=== PATIENT | female | born 1960 ===

== ENCOUNTER 2020-11-17 08:42 | Outpatient (CLI) | payer OTHER | END 2020-11-17 22:06 | disposition home or self-care (01) | LOC: INF 08:42 | PROVIDERS: ATTEND Internal Medicine | DX: Z23 Encounter for immunization (principal) | CPT/HCPCS: 96372 ==

== ENCOUNTER 2020-12-09 08:49 | Outpatient (CLI) | payer OTHER | END 2020-12-09 22:14 | disposition home or self-care (01) | LOC: INF | PROVIDERS: ATTEND Internal Medicine | DX: Z23 Encounter for immunization (principal) | CPT/HCPCS: 96372 ==

== ENCOUNTER 2021-07-02 09:03 | Outpatient (CLI) | payer OTHER | END 2021-07-02 19:31 | disposition home or self-care (01) | LOC: LABW 09:03 | PROVIDERS: ATTEND Internal Medicine Gastroenterology | DX: R19.4 Change in bowel habit (principal); R19.7 Diarrhea, unspecified | CPT/HCPCS: 83630; 87015; 87045; 87324; 87328; 87329; 87449; 87899 ==